=== PATIENT | female | born 1985 | race Caucasian/White ===

== ENCOUNTER 2016-09-23 12:30 | Emergency (ER) | payer OTHER ==
--- NOTE | ~2016-09-23 | CR253 ---
[facility] A Service of [facility] RADIOLOGY TEXT RESULTS PATIENT: PAYTON MARCOS LOCATION: SED : 81 UNIT #: [id number] AGE: [address]: Alissa Sorensen SEX: F ORDER DR: [id number] [address] [address] [id number] E MR#: [id number] Acc #: [id number] NAME: PAYTON MARCOS : 1985 SEX: F STUDY DATE/TIME: 09/23/2016 12:02 UNIT: SED ROOM: STUDY DESCRIPTION: CR Tibia and Fibula 2 Views Rt Attending Physician: Alissa Sorensen Pa-C Ordering Physician: Alissa Sorensen Pa-C Primary Care Physician: No Primary Care Physician MEDICAL IMAGING REPORT This report is preliminary unless electronic signature is present. EXAM Right tibia-fibula 09/23/2016 HISTORY 31-year-old female patient status post injury. Patient jumped in swimming pool yesterday injuring right foot right tibia and fibula. Pain distal right tibia and foot. FINDINGS AP and lateral views of the lower right leg demonstrates intact tibia and fibula with no fracture identified. Soft tissues are preserved with no soft tissue swelling visualized. IMPRESSION Negative right tibia and fibula. Dictated by... Zachary Hatch M.D. THIS IS AN ELECTRONICALLY VERIFIED REPORT Zachary Hatch M.D. at 09/23/2016 3:10 PM BRETT/channing TD: 09/23/2016 13:45 JOB #: [id number] MEDICAL IMAGING REPORT Page 1 of 1
--- NOTE | ~2016-09-23 | CR127 ---
[facility]. [facility] A Service of [facility] RADIOLOGY TEXT RESULTS PATIENT: PAYTON MARCOS LOCATION: SED : [birth year] UNIT #: [id number] AGE: [address]: Alissa Sorensen SEX: F ORDER DR: [id number] [address] [address] [id number] E MR#: [id number] Acc #: [id number] NAME: PAYTON MARCOS : 1985 SEX: F STUDY DATE/TIME: 09/23/2016 12:02 UNIT: SED ROOM: STUDY DESCRIPTION: CR Foot Complete Min 3 View Rt Attending Physician: Alissa Sorensen Pa-C Ordering Physician: Alissa Sorensen Pa-C Primary Care Physician: No Primary Care Physician MEDICAL IMAGING REPORT This report is preliminary unless electronic signature is present. EXAM 3 views of the right foot. INDICATION Right foot pain starting yesterday. The patient jumped in a swimming pool at home. Pain is worse at the distal anterior tibial and metatarsal area of the right foot. FINDINGS No acute fracture or subluxation of the right foot is identified. There is really minimal degenerative change. No focal soft tissue abnormalities are seen. IMPRESSION Negative. Dictated by... Leila Delgado M.D. THIS IS AN ELECTRONICALLY VERIFIED REPORT Leila Delgado M.D. at 09/23/2016 6:55 PM AFF/tmw TD: 09/23/2016 14:14 JOB #: [id number] MEDICAL IMAGING REPORT Page 1 of 1
[~2016-09-23 12:30] MED LIST: AMOXICILLIN PO; DOXYCYCLINE HY100 M1 PO; DOXYCYCLINE PO; ELIMITE60 GM TOP; FLAGYL PO; IBUPROFEN800 MG PO; NO MEDICATIONS; PERCOCET5/325 PO; PHENERGAN PO; PHENERGAN PR; ROBAXIN PO; VIBRAMYCIN100 M1 PO; VICODIN 5/1 TAB 5/50 PO; VICODIN 5/500 T1 TAB PO
== END 2016-09-23 13:17 | disposition home or self-care (01) ==
LOC: SED 12:30
DX: S93.401A Sprain of unspecified ligament of right ankle, initial encounter (principal); F17.210 Nicotine dependence, cigarettes, uncomplicated; W22.8XXA Striking against or struck by other objects, initial encounter; Y92.009 Unspecified place in unspecified non-institutional (private) residence as the place of occurrence of the external cause
CPT/HCPCS: 29405; 73590; 73630; 99284

== ENCOUNTER 2016-12-12 12:56 | Emergency (ER) | payer OTHER ==
[2016-12-12 13:59] LABS: URINE SOURCE CLEAN CATCH
[2016-12-12 14:02] LABS: URINE APPEARANCE CLEAR; URINE BILIRUBIN NEG (NEG); URINE BLOOD NEG (NEG); URINE COLOR YELLOW; URINE GLUCOSE NEG (NORM); URINE KETONE NEG (NEG); URINE LEUKOCYTE ESTERASE NEG (NEG); URINE NITRATE NEG (NEG); URINE PH 8.5 (5-8); URINE PROTEIN TRACE (NEG)
[2016-12-12 14:04] LABS: MICRO INDICATED? YES
[2016-12-12 14:26] LABS: CULTURE INDICATED? NO; URINE BACTERIA NEG (NEG); URINE RBC 0-2 /[HPF] (0-2); URINE WBC 0-2 /[HPF] (0-5)
[2016-12-14 16:44] LABS: CHLAMYDIA TRACH Not Detected (Not Detected); N GONOR Not Detected (Not Detected)
== END 2016-12-12 15:56 | disposition home or self-care (01) ==
LOC: SED 12:56
PROVIDERS: Student in an Organized Health Care Education/Training Program
DX: N89.8 Other specified noninflammatory disorders of vagina (principal); R10.2 Pelvic and perineal pain; F17.200 Nicotine dependence, unspecified, uncomplicated
CPT/HCPCS: 81003; 84703; 87491; 87591; 87808; 87905; 99284